=== PATIENT | male | born 1970 | race Caucasian/White ===

== ENCOUNTER 2020-04-26 00:09 | Emergency (ER) | payer OTHER ==
[2020-04-26 00:53] LABS: BASOPHIL 0.4 % (0-2); EOSINOPHIL 5.3 % (0-5); HCT 34.7 % (42.0-52.0); HGB 11.2 g/dl (13.2-18.0); LYMPHOCYTE 8.4 % (15-48); MCH 32.7 pg (25.0-31.0); MCHC 32.3 g/dL (32.0-36.0); MCV 101.5 fL (78.0-100.0); MONOCYTE 10.8 % (0-12); MPV 8.9 fL (6.0-9.5); NRBC 0; PLT 196 K/uL (150-400); RBC 3.42 M/uL (4.70-6.00); RDW 17.7 % (11.5-14.0); WBC 4.7 K/uL (4.0-10.5)
[2020-04-26 01:04] LABS: INR 1.96 (0.9-1.2); PROTHROMBIN TIME 21.2 SECONDS (11.4-13.6)
[2020-04-26 01:16] LABS: BILIRUBIN - TOTAL 0.4 mg/dL (0.2-1.0); BUN/CREAT RATIO (CALC) 11.3 RATIO; CREATININE 1.06 mg/dL (0.67-1.17); GLOBULIN (CALCULATION) 2.8 g/dL; POTASSIUM 3.8 mmol/L (3.5-5.1); TOTAL PROTEIN 5.8 g/dL (6.4-8.2)
== END 2020-04-26 01:53 | disposition home or self-care (01) ==
LOC: FER 00:09
PROVIDERS: Emergency Medicine
DX: R04.2 Hemoptysis (principal); R79.1 Abnormal coagulation profile; Z85.528 Personal history of other malignant neoplasm of kidney
CPT/HCPCS: 36415; 71045; 80053; 85025; 85610

== ENCOUNTER 2020-09-09 10:46 | Emergency (ER) | payer OTHER ==
[2020-09-09 13:35] LABS: BASOPHIL 0.6 % (0-2); EOSINOPHIL 1.3 % (0-5); HCT 30.5 % (42.0-52.0); HGB 9.6 g/dl (13.2-18.0); MCHC 31.5 g/dL (32.0-36.0); MCV 88.9 fL (78.0-100.0); MONOCYTE 7.2 % (0-12); MPV 8.6 fL (6.0-9.5); NEUTROPHIL 84.1 % (41-80); NRBC 0; PLT 250 K/uL (150-400); RBC 3.43 M/uL (4.70-6.00); RDW 18.6 % (11.5-14.0); WBC 9.4 K/uL (4.0-10.5)
[2020-09-09 13:58] LABS: ALBUMIN 2.9 g/dL (3.4-5.0); BILIRUBIN - TOTAL 0.4 mg/dL (0.2-1.0); BUN/CREAT RATIO (CALC) 14.3 RATIO; CREATININE 0.91 mg/dL (0.67-1.17); GLOBULIN (CALCULATION) 3.6 g/dL; POTASSIUM 4.3 mmol/L (3.5-5.1); TOTAL PROTEIN 6.5 g/dL (6.4-8.2)
[2020-09-09 15:15] LABS: BILIRUBIN NEGATIVE (NEGATIVE); BLOOD NEGATIVE Ery/uL (NEGATIVE); CLARITY HAZY (CLEAR); COLOR YELLOW (YELLOW); GLUCOSE (U) NORMAL (NORMAL); LEUKOCYTES NEGATIVE Leu/uL (NEGATIVE); NITRITE NEGATIVE (NEGATIVE); PROTEIN TRACE (LOW) mg/dL (NEGATIVE); UROBILINOGEN 0.2 mg/dL (0.2-1.0); pH 6.5 (5.0-9.0)
[2020-09-09 15:46] LABS: URINARY RBC RARE
== END 2020-09-09 17:08 | disposition home or self-care (01) ==
LOC: FER 10:46
PROVIDERS: Emergency Medicine
DX: E86.0 Dehydration (principal); C79.00 Secondary malignant neoplasm of unspecified kidney and renal pelvis
CPT/HCPCS: 36415; 72157; 80053; 81001; 82565; 83690; 85025; A9579; J1170; J2060; J2405; J7030